=== PATIENT | female | born 1955 | race Caucasian/White ===

== ENCOUNTER 2023-08-17 09:52 | Outpatient (REF) | payer MEDICARE, OTHER, SELFPAY ==
[2023-08-17 11:39] LABS: Anion Gap 11 (12-20); Blood Urea Nitrogen 22 mg/dL (9-16); Calcium 9.5 mg/dL (8.4-10.2); Carbon Dioxide 30 mmol/L (22-29); Chloride 103 mmol/L (96-108); Estimated Glomerular Filt Rate 49; Phosphorus 2.8 mg/dL (2.7-4.5); Potassium 4.2 mmol/L (3.3-5.1); Sodium 140 mmol/L (135-145)
[2023-08-17 11:59] LABS: Vitamin D 25-OH Total 29.1 ng/mL (>30)
[2023-08-17 12:18] LABS: Creatinine Urine 150.41 mg/dL; Protein/Creatinine Ratio, Ur 0.07 (<0.2); Total Protein Urine Random 10 mg/dL (<12)
[2023-08-18 10:22] LABS: Calcium (PTHI) 9.5 mg/dL (8.6-10.4); PTHI 106 pg/mL (16-77)
== END 2023-08-17 09:53 | disposition home or self-care (01) ==
LOC: HO.LAB 09:52
PROVIDERS: PCP Nurse Practitioner Adult Health; Visit Provider Internal Medicine Nephrology
DX: I12.9 Hypertensive chronic kidney disease with stage 1 through stage 4 chronic kidney disease, or unspecified chronic kidney disease (principal); N18.30 Chronic kidney disease, stage 3 unspecified
CPT/HCPCS: 36415; 80051; 82306; 82310; 82565; 82570; 83970; 84100; 84156; 84520

== ENCOUNTER 2023-08-18 10:48 | Outpatient (AMB) | payer MEDICARE, OTHER, SELFPAY ==
--- NOTE | 2023-08-18 11:02 | HO.NEPHOV_ITS ---
HPI HPI Comments History of Present Illness Details Izabela was seen in the office in follow-up for mild chronic kidney disease and hypertension. She is a diabetic. She has lost a lot of weight intentionally. Her last A1c was 7.1. She is on Trulicity, med for as well as Jardiance. Her blood pressure is well controlled with the metoprolol, hydrochlorothiazide and losartan. She has retired from work this December. She does not have any urinary symptoms, pedal edema, chest pain, shortness of breath, nausea, vomiting, diarrhea, joint pains, orthostatic symptoms. Her medications remain the same. She had no new complaints at the time of this office visit. [facility] Medical History (Updated 08/18/23 @ 13:50 by Dangelo Horton MD) History of pyloric stenosis as a child Hypertension CKD (chronic kidney disease) stage 3, GFR 30-59 ml/min Surgical History (Updated 08/18/23 @ 11:16 by Krystle Mcknight MA) History of lumpectomy History of cholecystectomy History of appendectomy Family History (Updated 08/18/23 @ 11:17 by Krystle Mcknight MA) Father Kidney disease Diabetes Heart disease Hypertension Father Hypertension Social History (Updated 08/18/23 @ 11:16 by Krystle Mcknight MA) Alcohol intake: never Patient Tobacco Use Status: Never used Tobacco Vital Signs 08/18/23 11:12 Height 5 ft 6 in Weight 174 lb 2 oz BMI 28.1 BP 116/70 Blood Pressure Location Rt brachial Position Sitting Pulse 75 Pulse Source Pulse Oximeter Physical Exam Vital Signs: Last Vital Signs Pulse 75 08/18/23 11:12 BP 116/70 08/18/23 11:12 BMI result Body Mass Index 28.1 Const General: comfortable and no acute distress Orientation/consciousness: patient oriented x3 HEENT Head: Yes normocephalic Mouth: Normal oral and palatal mucosa present Eyes EOM: EOMs intact bilaterally Neck Neck: Yes supple Resp Auscultation: clear to auscultation bilaterally Cardio Jugular venous distension: no JVD Rate: regular rate GI Palpation (GI): Soft to palpation Auscultation: normal bowel sounds General: Yes no CVA tenderness Back/Spine/Pelvis Back: no CVA tenderness Skin General skin exam: no rashes or lesions noted Neuro General: patient oriented x3 and moves all extremities Extrem General: Yes no pedal edema Assessment & Plan Assessment & Plan (1) CKD (chronic kidney disease) stage 3, GFR 30-59 ml/min: Code(s): N18.30 - Chronic kidney disease, stage 3 unspecified Qualifiers: Chronic kidney disease stage 3 subtype: stage 3a (GFR 45-59) Qualified Code(s): N18.31 - Chronic kidney disease, stage 3a (2) Hypertension: Code(s): I10 - Essential (primary) hypertension Qualifiers: Hypertension type: primary hypertension Qualified Code(s): I10 - Essential (primary) hypertension Plan Izabela has CKD stage 3 at baseline. Her renal functions are stable. Her blood sugar control is better. She has lost lot of weight. Her blood pressure is at goal. She is tolerating angiotensin receptor yessy. She is on Jardiance .She is tolerating statins. If she continues to lose weight I may back off on some antihypertensive medications. Follow-up about 3 studies ordered. All questions answered. Encouraged to remain well hydrated. Time spent retrieving data, documentation and patient encounter 23 minutes. Follow-up given. Orders: Orders Protein Creatinine Ratio, Ur Today I10 - Essential (primary) hypertension, N18.30 - Chronic kidney disease, stage 3 unspecified Blood Urea Nitrogen Today I10 - Essential (primary) hypertension, N18.30 - Chronic kidney disease, stage 3 unspecified Creatinine Today I10 - Essential (primary) hypertension, N18.30 - Chronic kidney disease, stage 3 unspecified Calcium Today I10 - Essential (primary) hypertension, N18.30 - Chronic kidney disease, stage 3 unspecified Vitamin D 25-OH Total Today I10 - Essential (primary) hypertension, N18.30 - Chronic kidney disease, stage 3 unspecified Electrolytes Today I10 - Essential (primary) hypertension, N18.30 - Chronic kidney disease, stage 3 unspecified Coding Level of Care Code Est Pt Level 3 (64679) Diagnoses Stage 3a chronic kidney disease N18.31 Chronic kidney disease stage 3 subtype: stage 3a (GFR 45-59) Primary hypertension I10 Hypertension type: primary hypertension
[2023-08-18 11:12] VITALS: BP 116/70; PULSE 75; BMI 28.1
== END 2023-08-18 11:47 | disposition home or self-care (01) ==
PROVIDERS: PCP Internal Medicine Medical Oncology; Visit Provider Internal Medicine Nephrology
DX: N18.31 Chronic kidney disease, stage 3a (principal); I10 Essential (primary) hypertension
CPT/HCPCS: 99213

== ENCOUNTER → 2023-08-18 10:48 | Outpatient (BNVA) | payer MEDICARE, OTHER, SELFPAY | PROVIDERS: PCP Internal Medicine Medical Oncology; Visit Provider Internal Medicine Nephrology | DX: I12.9 Hypertensive chronic kidney disease with stage 1 through stage 4 chronic kidney disease, or unspecified chronic kidney disease (principal); E11.9 Type 2 diabetes mellitus without complications; N18.31 Chronic kidney disease, stage 3a; Z79.85 Long-term (current) use of injectable non-insulin antidiabetic drugs | CPT/HCPCS: 99212 ==

== ENCOUNTER 2024-04-18 11:51 | Outpatient (REF) | payer MEDICARE, OTHER, SELFPAY ==
[2024-04-18 13:22] LABS: Anion Gap 13 (12-20); Blood Urea Nitrogen 21 mg/dL (9-16); Calcium 10.3 mg/dL (8.4-10.2); Carbon Dioxide 30 mmol/L (22-29); Chloride 101 mmol/L (96-108); Estimated Glomerular Filt Rate 44; Potassium 4.2 mmol/L (3.3-5.1); Sodium 140 mmol/L (135-145)
[2024-04-18 13:39] LABS: Vitamin D 25-OH Total 48.1 ng/mL (>30)
[2024-04-18 15:41] LABS: Creatinine Urine 100.55 mg/dL; Total Protein Urine Random < 7 mg/dL (<12)
== END 2024-04-18 11:52 | disposition home or self-care (01) ==
LOC: HO.LAB 11:51
PROVIDERS: PCP Internal Medicine; Visit Provider Internal Medicine Nephrology
DX: I12.9 Hypertensive chronic kidney disease with stage 1 through stage 4 chronic kidney disease, or unspecified chronic kidney disease (principal); N18.30 Chronic kidney disease, stage 3 unspecified
CPT/HCPCS: 36415; 80051; 82306; 82310; 82565; 82570; 84156; 84520

== ENCOUNTER 2024-04-19 11:09 | Outpatient (AMB) | payer MEDICARE, OTHER, SELFPAY ==
--- NOTE | 2024-04-19 11:11 | HO.NEPHOV_ITS ---
Vital Signs 04/19/24 11:14 Height 5 ft 6 in Weight 173 lb BMI 27.9 BP 114/80 Blood Pressure Location Rt brachial Position Sitting Pulse 84 Pulse Source Pulse Oximeter Pulse Oximetry (%) 96 Oxygen Delivery Method Room Air Intake Visit Reasons: 8M follow up/ Conf Shed Boss Required: No Accompanied by: Self / Same As Patient Allergies amlodipine Allergy (Verified 04/19/24 11:16) Unknown lisinopril Allergy (Verified 04/19/24 11:16) Unknown HPI Comments Details: Izabela was seen in the office in follow-up for mild chronic kidney disease and hypertension. She is a diabetic. She has lost a lot of weight intentionally. Her last A1c was 7.1. She is on Trulicity, med for as well as Jardiance. Her blood pressure is well controlled with the metoprolol, hydrochlorothiazide and losartan. She has retired from work December 2022. She does not have any urinary symptoms, pedal edema, chest pain, shortness of breath, nausea, vomiting, diarrhea, joint pains, orthostatic symptoms. Her medications remain the same. She had no new complaints at the time of this office visit. [facility] Medical History (Updated 08/18/23 @ 13:50 by Dangelo Horton MD) History of pyloric stenosis as a child Hypertension CKD (chronic kidney disease) stage 3, GFR 30-59 ml/min Surgical History History of lumpectomy History of cholecystectomy History of appendectomy Family History Father Kidney disease Diabetes Heart disease Hypertension Father Hypertension Social History Alcohol intake: never Patient Tobacco Use Status: Never used Tobacco Review of Systems Const All systems reviewed & are unremarkable except as noted in HPI and below Physical Exam Vital Signs: Last Vital Signs Pulse 84 04/19/24 11:14 BP 114/80 04/19/24 11:14 Pulse Ox 96 04/19/24 11:14 Oxygen Delivery Method Room Air 04/19/24 11:14 BMI result Body Mass Index 27.9 Const General: comfortable and no acute distress Orientation/consciousness: patient oriented x3 HEENT Head: Yes normocephalic Mouth: Normal oral and palatal mucosa present Eyes EOM: EOMs intact bilaterally Neck Neck: Yes supple Resp Auscultation: clear to auscultation bilaterally Cardio Jugular venous distension: no JVD Rate: regular rate GI Palpation (GI): Soft to palpation Auscultation: normal bowel sounds General: Yes no CVA tenderness Back/Spine/Pelvis Back: no CVA tenderness Skin General skin exam: no rashes or lesions noted Neuro General: patient oriented x3 and moves all extremities Extrem General: Yes no pedal edema Results Reviewed Nephrology Results: Sodium 140 mmol/L (135-145) 04/18/24 Potassium 4.2 mmol/L (3.3-5.1) 04/18/24 Chloride 101 mmol/L (96-108) 04/18/24 Carbon Dioxide 30 mmol/L (22-29) H 04/18/24 BUN 21 mg/dL (9-16) H 04/18/24 Creatinine 1.20 mg/dL (0.5-1.4) 04/18/24 Calcium 10.3 mg/dL (8.4-10.2) H 04/18/24 Phosphorus 2.8 mg/dL (2.7-4.5) 08/17/23 PTH Intact 106 pg/mL (16-77) H 08/17/23 Urine Creatinine 100.55 mg/dL 04/18/24 Protein/Creatinin Ratio TNP 04/18/24 Assessment & Plan Assessment & Plan (1) CKD (chronic kidney disease) stage 3, GFR 30-59 ml/min: Code(s): N18.30 - Chronic kidney disease, stage 3 unspecified Category: Medical Qualifiers: Chronic kidney disease stage 3 subtype: stage 3a (GFR 45-59) Qualified Code(s): N18.31 - Chronic kidney disease, stage 3a (2) Hypertension: Code(s): I10 - Essential (primary) hypertension Category: Medical Qualifiers: Hypertension type: primary hypertension Qualified Code(s): I10 - Ess ential (primary) hypertension Plan Izabela has CKD stage 3 at baseline. Her renal functions are stable. Her blood sugar control is better. She has lost lot of weight. Her blood pressure is at goal. She is tolerating angiotensin receptor yessy. She is on Jardiance .She is tolerating statins. If she continues to lose weight I may back off on some antihypertensive medications. I reduced HCTZ to 12.5 mg and shall try to take her off it with time . Follow-up about blood work ordered. All questions answered. Encouraged to remain well hydrated. Orders: Orders Creatinine Today I10 - Essential (primary) hypertension, N18.31 - Chronic kidney disease, stage 3a Electrolytes Today I10 - Essential (primary) hypertension, N18.31 - Chronic kidney disease, stage 3a Blood Urea Nitrogen Today I10 - Essential (primary) hypertension, N18.31 - Chronic kidney disease, stage 3a Calcium Today I10 - Essential (primary) hypertension, N18.31 - Chronic kidney disease, stage 3a Coding Level of Care Code Est Pt Level 4 (64383) Diagnoses Stage 3a chronic kidney disease N18.31 Chronic kidney disease stage 3 subtype: stage 3a (GFR 45-59) Primary hypertension I10 Hypertension type: primary hypertension
[2024-04-19 11:14] VITALS: BP 114/80; PULSE 84; O2SAT 96; BMI 27.9
== END 2024-04-19 11:49 | disposition home or self-care (01) ==
PROVIDERS: PCP Internal Medicine Medical Oncology; Visit Provider Internal Medicine Nephrology
DX: N18.31 Chronic kidney disease, stage 3a (principal); I10 Essential (primary) hypertension
CPT/HCPCS: 99214

== ENCOUNTER → 2024-04-19 11:09 | Outpatient (BNVA) | payer MEDICARE, OTHER, SELFPAY | PROVIDERS: PCP Internal Medicine Medical Oncology; Visit Provider Internal Medicine Nephrology | DX: I12.9 Hypertensive chronic kidney disease with stage 1 through stage 4 chronic kidney disease, or unspecified chronic kidney disease (principal); E11.22 Type 2 diabetes mellitus with diabetic chronic kidney disease; N18.31 Chronic kidney disease, stage 3a; Z79.899 Other long term (current) drug therapy | CPT/HCPCS: 99212 ==

== ENCOUNTER 2024-10-26 08:34 | Outpatient (REF) | payer MEDICARE, OTHER, SELFPAY ==
--- OUTSIDE RECORDS SUMMARY | 2024-10-26 08:38 | XMS_ITS | Clinical Summary ---
Author Organization [facility] Address [address] [facility] [address] [place] [address] Phone Care Team Providers Care Electrician Helper [employer]otive Name Role Phone Juju Maurer SOLAR THERMAL INSTALLER Primary Care Provider [phone]- [phone] Allergies Active Allergy Reactions Criticality Noted Date Comments Amlodipine Other (see comments) 09/10/2020 Lisinopril Other (see comments) 09/10/2020 Medications omeprazole (PriLOSEC) [address] capsule Take 1 capsule by mouth 1 (one) time each day Active atorvastatin (LIPITOR) 10 MG tablet Take 1 tablet by mouth 1 (one) time each day Active Empagliflozin (Jardiance) 25 MG tablet Take 1 tablet by mouth 1 (one) time each day Active losartan (COZAAR) 100 MG tablet Take 1 tablet by mouth 1 (one) time each day 05/13/2016 Active metFORMIN (FORTAMET) 500 MG 24 hr tablet Take 2 tablets by mouth 1 (one) time each day Active metoprolol succinate XL (TOPROL-XL) 100 MG 24 hr tablet Take 2 tablets by mouth 1 (one) time each day 05/13/2016 Active sertraline (ZOLOFT) 50 MG tablet Take 1 tablet by mouth 1 (one) time each day Active Trulicity 1.5 MG/0.5ML solution pen-injector 09/16/2021 Active hydroCHLOROthia zide 25 MG tablet Take 1 tablet (25 mg total) by mouth 1 (one) time each day 90 tablet 3 02/12/2022 Active Active Problems Problem Noted Date Diagnosed Date Stage 3a chronic kidney disease 03/04/2021 Hypertensive renal disease 03/04/2021 Essential hypertension 03/04/2021 Hypertension 03/04/2021 Resolved Problems Problem Noted Date Diagnosed Date Resolved Date Urinary tract infectious disease 03/04/2021 10/11/2021 Acute non-suppurative serous otitis media 03/04/2021 10/11/2021 Anxiety 03/04/2021 10/11/2021 Diabetes mellitus 03/04/2021 10/11/2021 Gastro-esophageal reflux dis ease without esophagitis 03/04/2021 10/11/2021 General examination of patient 03/04/2021 10/11/2021 Hypercholesterolemia 03/04/2021 022 Postmenopausal state 03/04/2021 022 Vitamin D deficiency 03/04/2021 022 Immunizations Name Administration Dates Next Due DTaP 09/21/2006 Influenza Split High Dose Pr eservative Free IM 07/12/2021,06/20/2020,06/29/2019 Influenza, Quadrivalent, With Preservative 06/21,07/13/2017,08/04/2016 Pneumococcal Conjugate 13-Valent 07/20/2018,09/22 Pneumococcal Polysaccharide 06/06/2014 TD Preservative Free 09/21/2009 Zoster 07/13/2020 Family History Medical History Relation Comments Cancer Father Diabetes Father Gout Father Heart disease Father Hypertension Father Kidney disease Father Hypertension Mother Relation Status Comments Father Mother Alive Social History Tobacco Use Types Packs/Day Years Used Date Smoking Tobacco: Never Smokeless Tobacco: Never Alcohol Use Standard Drinks/Week Comments No 0 (1 standard drink = 0.6 oz pur e alcohol) Comments Unknown Sex and Gender Information Value Date Recorded Sex Assigned at Not on file Legal Sex Female 5:07 PM EST Gender Identity Not on file Sexual Orientation Not on file Last Filed Vital Signs Vital Sign Reading Time Taken Comments Blood Pressure 120/76 08/05/2022 4:17 PM EST Pulse 80 08/05/2022 4:17 PM EST Temperature - - Respiratory Rate - - Oxygen Saturation 98% 08/05/2022 4:17 PM EST Inhaled Oxygen Concentration - - Weight 86.2 kg (190 lb) 08/05/2022 4:17 PM EST Height 165.1 cm (5' 5 ) 08/05/2022 4:17 PM EST Body Mass Index 31.62 08/05/2022 4:17 PM EST Plan of Treatment Health Maintenance Due Date Last Done Comments Breast Cancer Screening 1955 Colorectal Cancer Screening: Annual FOBT 2003 Colorectal Cancer Screening: Colonoscopy 2003 Colorectal Cancer Screening: Sigmoidoscopy 2003 Pneumococcal Vaccine: 65+ Years (3 of 3 - PPSV23 or PCV20) 06/06/2019 07/20/2018, 10/14/2016, 10/14/2016, Additional history exists Influenza Vaccine (#1) 2024 , 06/20/2020, 06/29/2019, Additional history exists Hepatitis B Vaccine Aged Out No longe r eligible based on patient's age to complete this topic Care Teams Electrician Helper [employer]otive Relationship Specialty Start Date End Date Juju Maurer NP PCP - General 10/01/20
[2024-10-26 18:57] LABS: Anion Gap 11 (12-20); Blood Urea Nitrogen 22 mg/dL (9-16); Calcium 9.2 mg/dL (8.4-10.2); Carbon Dioxide 28 mmol/L (22-29); Chloride 105 mmol/L (96-108); Estimated Glomerular Filt Rate 54; Potassium 4.8 mmol/L (3.3-5.1); Sodium 139 mmol/L (135-145)
== END 2024-10-26 08:35 | disposition home or self-care (01) ==
LOC: HO.HKASLDS 08:34
PROVIDERS: Visit Provider Internal Medicine Nephrology
DX: I12.9 Hypertensive chronic kidney disease with stage 1 through stage 4 chronic kidney disease, or unspecified chronic kidney disease (principal); N18.31 Chronic kidney disease, stage 3a
CPT/HCPCS: 36415; 80051; 82310; 82565; 84520

== ENCOUNTER 2024-11-01 10:57 | Outpatient (AMB) | payer MEDICARE, OTHER, SELFPAY ==
--- NOTE | 2024-11-01 11:39 | HO.NEPHOV ---
Vital Signs 11/01/24 11:40 Height 5 ft 6 in Weight 178 lb BMI 28.7 BP 130/80 Blood Pressure Location Lt brachial Position Sitting Pulse 79 Pulse Source Pulse Oximeter Pulse Oximetry (%) 97 Oxygen Delivery Method Room Air Intake Visit Reasons: 8M follow up/ Conf Conflict Resolution Professional Required: No Accompanied by: Self / Same As Patient Allergies amlodipine Allergy (Verified 11/01/24 11:40) Unknown lisinopril Allergy (Verified 11/01/24 11:40) Unknown HPI Comments Details: Izabela was seen in the office in follow-up for mild chronic kidney disease and hypertension. She is a diabetic. She has lost a lot of weight intentionally. Her last A1c was 6.9. She is on Trulicity, med for as well as Jardiance. Her blood pressure is well controlled with the metoprolol, hydrochlorothiazide and losartan. She has retired from work December 2022. She does not have any urinary symptoms, pedal edema, chest pain, shortness of breath, nausea, vomiting, diarrhea, joint pains, orthostatic symptoms. Her medications remain the same. She had no new complaints at the time of this office visit. [facility] Medical History (Updated 08/18/23 @ 13:50 by Dangelo Horton MD) History of pyloric stenosis as a child Hypertension CKD (chronic kidney disease) stage 3, GFR 30-59 ml/min Surgical History History of lumpectomy History of cholecystectomy History of appendectomy Family History Father Kidney disease Diabetes Heart disease Hypertension Father Hypertension Social History Alcohol intake: never Patient Tobacco Use Status: Never used Tobacco Review of Systems Const All systems reviewed & are unremarkable except as noted in HPI and below Physical Exam Vital Signs: Last Vital Signs Pulse 79 11/01/24 11:40 BP 130/80 11/01/24 11:40 Pulse Ox 97 11/01/24 11:40 Oxygen Delivery Method Room Air 11/01/24 11:40 BMI result Body Mass Index 28.7 Const General: comfortable and no acute distress Orientation/consciousness: patient oriented x3 HEENT Head: Yes normocephalic Mouth: Normal oral and palatal mucosa present Eyes EOM: EOMs intact bilaterally Neck Neck: Yes supple Resp Auscultation: clear to auscultation bilaterally Cardio Jugular venous distension: no JVD Rate: regular rate GI Palpation (GI): Soft to palpation Auscultation: normal bowel sounds General: Yes no CVA tenderness Back/Spine/Pelvis Back: no CVA tenderness Skin General skin exam: no rashes or lesions noted Neuro General: patient oriented x3 and moves all extremities Extrem General: Yes no pedal edema Results Reviewed Nephrology Results: Sodium 139 mmol/L (135-145) 10/26/24 Potassium 4.8 mmol/L (3.3-5.1) 10/26/24 Chloride 105 mmol/L (96-108) 10/26/24 Carbon Dioxide 28 mmol/L (22-29) 10/26/24 BUN 22 mg/dL (9-16) H 10/26/24 Creatinine 1.01 mg/dL (0.5-1.4) 10/26/24 Calcium 9.2 mg/dL (8.4-10.2) 10/26/24 Phosphorus 2.8 mg/dL (2.7-4.5) 08/17/23 PTH Intact 106 pg/mL (16-77) H 08/17/23 Urine Creatinine 100.55 mg/dL 04/18/24 Protein/Creatinin Ratio TNP 04/18/24 Assessment & Plan Assessment & Plan (1) CKD (chronic kidney disease) stage 3, GFR 30-59 ml/min: Code(s): N18.30 - Chronic kidney disease, stage 3 unspecified Category: Medical Qualifiers: Chronic kidney disease stage 3 subtype: stage 3a (GFR 45-59) Qualified Code(s): N18.31 - Chronic kidney disease, stage 3a (2) Hypertension: Code(s): I10 - Essential (primary) hypertension Category: Medical Qualifiers: Hypertension type: primary hypertension Qualified Code(s): I10 - Essential (primary) hypertension Plan Izabela has CKD stage 3 at baseline. Her renal functions are stable. Her blood sugar control is better. She has lost lot of weight. Her blood pressure is at goal. She is tolerating angiotensin receptor yessy. She is on Jardiance .She is tolerating statins. If she continues to lose weight I may back off on some antihypertensive medications.Follow-up about blood work ordered. All questions answered. Encouraged to remain well hydrated. Orders: Orders Blood Urea Nitrogen 8 Months I10 - Essential (primary) hypertension, N18.31 - Chronic kidney disease, stage 3a Electrolytes 8 Months I10 - Essential (primary) hypertension, N18.31 - Chronic kidney disease, stage 3a Creatinine 8 Months I10 - Essential (primary) hypertension, N18.31 - Chronic kidney disease, stage 3a Protein Creatinine Ratio, Ur 8 Months I10 - Essential (primary) hypertension, N18.31 - Chronic kidney disease, stage 3a Medications: Changed From hydrochlorothiazide 12.5 mg PO DAILY To hydrochlorothiazide 12.5 mg PO DAILY 90 tabs 3RF Coding Level of Care Code Est Pt Level 4 (29753) Diagnoses Stage 3a chronic kidney disease N18.31 Chronic kidney disease stage 3 subtype: stage 3a (GFR 45-59) Primary hypertension I10 Hypertension type: primary hypertension
[2024-11-01 11:40] VITALS: BP 130/80; PULSE 79; O2SAT 97; BMI 28.7
--- OUTSIDE RECORDS SUMMARY | 2024-11-01 12:21 | XMS_ITS ---
Author Organization [facility] Address [address] [facility] [address] [place] [address] Care Team Providers Care Craft Manager Name Role Phone CLARITA HEDRICK Primary Care Provider CLARITA HEDRICK [phone] Medications Medication SIG (Take, Route, Fr equency, Duration) Notes Start Date End Date Status metFORMIN HCl ER 500 MG TAKE 2 tablets O rally twice daily with food for 90 days Acti ve Encounters Encounter Location Date Provider Diagnosis [facility] [address] [facility] [address] [place] [address] 07/24/2023 CLARITA HEDRICK Diabetes mellitus E11.9 Assessments Encounter Date Diagnosis (ICD Code) Assessment Notes Treatment Notes Treatment Clinical Notes Section Notes 07/24/2023 Diabetes mellitus (ICD-10 - E11.9) Plan Of Treatment Medication Medication Name Sig Start Date Stop Date Notes metFORMIN HCl ER 500 MG TAKE 2 tablets O rally twice daily with food for 90 days Progress Notes * Izabela SAM ADOB:1955 (68 yo F)Acc No.[id number]:07/24/2023 Patient:?Izabela Sam :1955???Age:68 Y???Sex:Female Address:[address] [place] [address], [phone] * Refills? Refill metFORMIN HCl ER Tablet Extended Release 24 Hour, 500 MG, Orally, 360, TAKE 2 tablets, twice daily with food, 90 days, Refills=0 * true * Date:? Generated for Ashley lockwood/Luis/Kavitaitting on:?11/01/2024 12:21 PM EST
--- OUTSIDE RECORDS SUMMARY | 2024-11-01 12:21 | XMS_ITS | Clinical Summary ---
Author Organization [facility] Address [address] [facility] [address] [place] [address] Phone Care Team Providers Care Sugar Cane Grower Name Role Phone Juju Maurer SCHOOL SOCIAL WORKER Primary Care Provider +1- [phone] Allergies Active Allergy Reactions Criticality Noted Date [...] age to complete this topic Care Teams Sugar Cane Grower Relationship Specialty Start Date End Date Juju Maurer NP PCP - General 10/01/20
--- OUTSIDE RECORDS SUMMARY | 2024-11-01 12:21 | XMS_ITS ---
Author Organization [facility] Address [address] [facility] [address] [place] [address] Care Team Providers Care Assorter Name Role Phone CLARITA HEDRICK Primary Care Provider [phone] CLARITA HEDRICK Unavailable [phone] REASON FOR VISIT Re:medication Encounters Encounter Location Date Provider Diagnosis [facility] [address] [facility] [address] [place] [address] 07/24/2023 CLARITA HEDRICK Plan Of Treatment No Information Progress Notes * Izabela MARTIN ADOB:1955 (68 yo F)Acc No.[id number]:07/24/2023 Patient:?Izabela Martin :1955???Age:68 Y???Sex:Female Address:[address] [place] [address], [address] * true * Date:? Generated for Printi ng/Fataylorg/eTransmitting on:?11/01/2024 12:20 PM EST
--- OUTSIDE RECORDS SUMMARY | 2024-11-01 12:21 | XMS_ITS ---
Author Organization [facility] Address [address] [facility] [address] [place] [address] Care Team Providers Care Core Oven Tender Name Role Phone CLARITA HEDRICK Primary Care Provider CLARITA HEDRICK Unavailable [phone] REASON FOR VISIT Transfer to [facility] Encounter Location Date Provider Diagnosis [facility] [address] [facility] [address] [place] [address] 09/17/2023 CLARITA HEDRICK Plan Of Treatment No Information Progress Notes * Izabela MARTIN ADOB:1955 (68 yo F)Acc No.[id number]:09/17/2023 Patient:?Izabela Martin Radha :1955???Age:68 Y???Sex:Female Address:[address] [place] [address], [phone] * true * Date:? Generated for Luis Eduardoi mandie/Luis/eTransmitting on:?11/01/2024 12:21 PM EST
== END 2024-11-01 12:01 | disposition home or self-care (01) ==
PROVIDERS: PCP Nurse Practitioner Family; Visit Provider Internal Medicine Nephrology
DX: N18.31 Chronic kidney disease, stage 3a (principal); I10 Essential (primary) hypertension
CPT/HCPCS: 99214

== ENCOUNTER → 2024-11-01 10:57 | Outpatient (BNVA) | payer MEDICARE, OTHER, SELFPAY | PROVIDERS: PCP Nurse Practitioner Family; Visit Provider Internal Medicine Nephrology | DX: I12.9 Hypertensive chronic kidney disease with stage 1 through stage 4 chronic kidney disease, or unspecified chronic kidney disease (principal); E11.22 Type 2 diabetes mellitus with diabetic chronic kidney disease; N18.31 Chronic kidney disease, stage 3a | CPT/HCPCS: 99212 ==

== ENCOUNTER 2025-07-01 09:31 | Outpatient (REF) | payer MEDICARE, OTHER, SELFPAY ==
--- OUTSIDE RECORDS SUMMARY | 2025-07-01 09:33 | XMS_ITS | Clinical Summary ---
Author Organization [facility] Address [address] [facility] [address] [place] [address] Phone Care Team Providers Care Content Manager Name Role Phone Juju Maurer PUNCHER AND FASTENER Primary Care Provider +1- [phone] Allergies Active Allergy Reactions Criticality Noted Date [...] 022 Vitamin D deficiency 03/04/2021 022 Immunizations Immunization Administration Dates Next Due DTaP 09/21/2006 Influenza [...] Colorectal Cancer Screening: Sigmoidoscopy 2003 Pneumococcal Vaccine: 50+ Years (3 of 3 - PCV20 or PCV21) 06/06/2019 07/20/2018, 10/14/2016, 10/14/2016, Additional history exists Influenza Vaccine (#1) 2025 , 06/20/2020, 06/29/2019, Additional history exists Pneumococcal Vaccine: Peds (0 to 5 Years) and At-Risk Patients (6 to 49 Years) Discontinued 07/20/2018, 10/14/2016, 10/14/2016, Additional history exists Hepatitis B Vaccine Aged Out No longe r eligible based on patient's age to complete this topic Care Teams Content Manager Relationship Specialty Start Date End Date Juju Maurer NP PCP - General 10/01/20
[2025-07-01 11:37] LABS: Anion Gap 12 (12-20); Blood Urea Nitrogen 24 mg/dL (9-16); Carbon Dioxide 28 mmol/L (22-29); Chloride 104 mmol/L (96-108); Estimated Glomerular Filt Rate 52; Potassium 4.3 mmol/L (3.3-5.1); Sodium 140 mmol/L (135-145)
[2025-07-01 13:17] LABS: Protein/Creatinine Ratio, Ur 0.05 (<0.2); Total Protein Urine Random 8 mg/dL (<12)
== END 2025-07-01 09:32 | disposition home or self-care (01) ==
LOC: HO.LAB 09:31
PROVIDERS: PCP Nurse Practitioner Family; Visit Provider Internal Medicine Nephrology
DX: I12.9 Hypertensive chronic kidney disease with stage 1 through stage 4 chronic kidney disease, or unspecified chronic kidney disease (principal); N18.31 Chronic kidney disease, stage 3a
CPT/HCPCS: 36415; 80051; 82565; 82570; 84156; 84520

== ENCOUNTER 2025-07-04 09:49 | Outpatient (AMB) | payer MEDICARE, OTHER, SELFPAY ==
--- NOTE | 2025-07-04 09:59 | HO.NEPHOV ---
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 She is a diabetic. She has lost a lot of weight intentionally. Her last A1c was 7.1. She is on Trulicity as well as Jardiance. Her blood pressure is well controlled with the metoprolol, hydrochlorothiazide and losartan. She has retired from work December 2022. She does not have any urinary symptoms, pedal edema, chest pain, shortness of breath, nausea, vomiting, diarrhea, joint pains, orthostatic symptoms. Her medications remain the same. She had no new complaints at the time of this office visit. COUNT INCLUDES THE [facility] Medical History (Updated 08/18/23 @ 13:50 by Dangelo Horton MD) History of pyloric stenosis as a child Hypertension CKD (chronic kidney disease) stage 3, GFR 30-59 ml/min Surgical History History of lumpectomy History of cholecystectomy History of appendectomy Family History Father Kidney disease Diabetes Heart disease Hypertension Father Hypertension Social History Alcohol intake: never Patient Tobacco Use Status: Never used Tobacco Review of Systems Const All systems reviewed & are unremarkable except as noted in HPI and below Physical Exam Vital Signs: Last Vital Signs Pulse 87 07/04/25 10:01 BP 130/70 07/04/25 10:01 Pulse Ox 96 07/04/25 10:01 Oxygen Delivery Method Room Air 07/04/25 10:01 BMI result Body Mass Index 28.1 Const General: comfortable and no acute distress Orientation/consciousness: patient oriented x3 HEENT Head: Yes normocephalic Mouth: Normal oral and palatal mucosa present Eyes EOM: EOMs intact bilaterally Neck Neck: Yes supple Resp Auscultation: clear to auscultation bilaterally Cardio Jugular venous distension: no JVD Rate: regular rate GI Palpation (GI): Soft to palpation Auscultation: normal bowel sounds General: Yes no CVA tenderness Back/Spine/Pelvis Back: no CVA tenderness Skin General skin exam: no rashes or lesions noted Neuro General: patient oriented x3 and moves all extremities Extrem General: Yes no pedal edema Results Reviewed Nephrology Results: Sodium, (135-145) 140 mmol/L 07/01/25 Potassium, (3.3-5.1) 4.3 mmol/L 07/01/25 Chloride, (96-108) 104 mmol/L 07/01/25 Carbon Dioxide, (22-29) 28 mmol/L 07/01/25 BUN, (9-16) 24 mg/dL H 07/01/25 Creatinine, (0.5-1.4) 1.04 mg/dL 07/01/25 Calcium, (8.4-10.2) 9.2 mg/dL Δ 10/26/24 Phosphorus, (2.7-4.5) 2.8 mg/dL 08/17/23 PTH Intact, (16-77) 106 pg/mL H 08/17/23 Urine Creatinine 151.58 mg/dL 07/01/25 Protein/Creatinin Ratio, (<0.2) 0.05 07/01/25 Assessment & Plan Assessment & Plan (1) CKD (chronic kidney disease) stage 3, GFR 30-59 ml/min: Code(s): N18.30 - Chronic kidney disease, stage 3 unspecified Category: Medical Qualifiers: Chronic kidney disease stage 3 subtype: stage 3a (GFR 45-59) Qualified Code(s): N18.31 - Chronic kidney disease, stage 3a (2) Hypertension: Code(s): I10 - Essential (primary) hypertension Category: Medical Qualifiers: Hypertension type: primary hypertension Qualified Code(s): I10 - Essential (primary) hypertension Plan Izabela has CKD stage 3 at baseline. Her renal functions are stable. Her blood sugar control is better. Her blood pressure is at goal. She is tolerating angiotensin receptor yessy. She is on Jardiance .She is tolerating statins. If she continues to lose weight I may back off on some antihypertensive medications.Follow-up about blood work ordered. All questions answered. Encouraged to remain well hydrated. Orders: Orders Blood Urea Nitrogen 1 Year I10 - Essential (primary) hypertension, N18.31 - Chronic kidney disease, stage 3a Calcium 1 Year I10 - Essential (primary) hypertension, N18.31 - Chronic kidney disease, stage 3a Protein Creatinine Ratio, Ur 1 Year I10 - Essential (primary) hypertension, N18.31 - Chronic kidney disease, stage 3a Creatinine 1 Year I10 - Essential (primary) hypertension, N18.31 - Chronic kidney disease, stage 3a Electrolytes 1 Year I10 - Essential (primary) hypertension, N18.31 - Chronic kidney disease, stage 3a Coding Level of Care Code Est Pt Level 4 (88870) Diagnoses Stage 3a chronic kidney disease N18.31 Chronic kidney disease stage 3 subtype: stage 3a (GFR 45-59) Primary hypertension I10 Hypertension type: primary hypertension
[2025-07-04 10:01] VITALS: BP 130/70; PULSE 87; O2SAT 96; BMI 28.1
--- OUTSIDE RECORDS SUMMARY | 2025-07-04 11:05 | XMS_ITS | Clinical Summary ---
Author Organization [facility] Address [address] [facility] [address] [place] [address] Phone Care Team Providers Care Sprinkling System Irrigator Name Role Phone Juju Maurer ASSOCIATE COUNSEL Primary Care Provider [phone] Allergies Active Allergy Reactions Criticality Noted Date [...] age to complete this topic Care Teams Sprinkling System Irrigator Relationship Specialty Start Date End Date Juju Maurer NP PCP - General 10/01/20
== END 2025-07-04 10:16 | disposition home or self-care (01) ==
LOC: HO.HKAS 09:49
PROVIDERS: PCP Nurse Practitioner Family; Visit Provider Internal Medicine Nephrology
DX: N18.31 Chronic kidney disease, stage 3a (principal); I10 Essential (primary) hypertension
CPT/HCPCS: 99214

== ENCOUNTER → 2025-07-04 09:49 | Outpatient (BNVA) | payer MEDICARE, OTHER, SELFPAY | PROVIDERS: PCP Nurse Practitioner Family; Visit Provider Internal Medicine Nephrology | DX: I10 Essential (primary) hypertension (principal); N18.31 Chronic kidney disease, stage 3a; E11.9 Type 2 diabetes mellitus without complications | CPT/HCPCS: 99212 ==